=== PATIENT | female | born 1985 | race Caucasian/White ===

== ENCOUNTER 2024-12-20 11:41 | Outpatient (CLI) | payer OTHER, SELFPAY ==
--- OUTSIDE RECORDS SUMMARY | 2024-12-20 12:16 | XMS_ITS | Continuity of Care Document ---
Author Name [facility] Organization [facility] Care Team Providers Care Cloth Tester Quality Name Role Phone [facility] Unavailable Unavailable Problems Combined list of problems from Department of Defense and Veterans Affairs facilities. It does not include entries that were removed or entered in error. Problem Status Onset Date Problem Type Date of Resolution Comments Source Abnormal glucose complicating Active 7 Condition DoD visit for: exam Inactive Condition orthotricycl en with spotting/menses since starting. WIll continue with next cycle-f/u if menses continues DoD visit for: exam first Active Condition /pre-admitted [facility] NORMAL CHECKUP - THIRD TRIMESTER Active Condition [facility] COMPLICATIONS: ABNORMAL GLUCOSE TOLERANCE Active Condition Labor precautio ns given. DoD Active Condition kick count sptl precautionsbirth control and botlle feeding established [facility] Patient Education - Preparation For Childbirth Active Condition [facility] NORMAL CHECKUP - SECOND TRIMESTER Active Condition [facility] URINARY TRACT INFECTION Inactive Condition completed ABX w eeks ago, MONIKA today [facility] NORMAL CHECKUP - FIRST TRIMESTER Active Condition [facility] NORMAL CHECKUP (6 - 42 Wk) Active Condition I counseled pat ient on schedule and importance of future visits and testing, answered all questions [facility] Health Seminar on Care Inactive Condition [facility] Test Positive Active Condition DoD Allergies, Adverse Reactions, Alerts Combined list of allergies from Department of Defense and Veterans Affairs facilities. It does not include entries that were removed or entered in error. Substance Category Reaction Severity Reaction type Status Date Reported Comments Source NO OUTPUT FOR NCID [id number] Drug allergy (disorder) active 07/27/2005 [facility] Immunizations Combined list of available immunizations from the Department of Defense and Veterans Affairs facilities. Immunization Series Date Given Administered By Site Reaction Lot Number CVX Code Drug Unit Secretary Status Comments Source tetanus toxoid, reduced diphtheria toxoid, and acellular pertu is vaccine, adsorbed 1 2016 [id number] [facility] [employer] (SKB) complet ed tetanus toxoid, reduced diphtheri a toxoid, and acellular pertussis vaccine, adsorbed DoD Influenza, injectable, quadrivalent, preservative free 0 2016 [id number] [employer] (SKB) complet ed Influenza , injectabl e, quadrival ent, preservat stevenson free DoD Influenza, seasonal, injectable, preservative free 0 2015 [id number] Seqirus (SEQ) comple t ed Influenza , seasonal, injectabl e, preservat stevenson free DoD influenza, live, intranasal, quadrivalent 0 2014 [id number] 149 [employer] (MED) complet ed influenza , live, intranasa l, quadrival ent DoD influenza, live, intranasal, quadrivalent 0 2013 [id number] 149 [employer] (MED) complet ed influenza , live, intranasa l, quadrival ent DoD influenza nasal, unspecified formulation 0 2012 [id number] 151 [employer] (MED) complet ed influenza nasal, unspecifi ed formulati on DoD hepatitis A vaccine, adult dosage 2 2011 [id number] 52 Smithine (B) complet ed hepatitis A vaccine, adult dosage DoD influenza virus vaccine, live, attenuated, for intranasal use 0 2011 [id number] 111 [employer] (MED) complet ed influenza virus vaccine, live, attenuate d, for intranasa l use DoD human papilloma virus vaccine, quadrivalent 2 2011 [id number] 62 Merck (MSD) complet ed human papilloma virus vaccine, quadrival ent DoD measles and rubella virus vaccine 0 2011 04 () Not Given measles and rubella virus vaccine DoD hepatitis B vaccine, pediatric or pediatric/ado lescent dosage 0 2011 08 () Not Given hepatitis B vaccine, pediatric or pediatric /adolesce nt dosage DoD varicella virus vaccine 0 2011 21 () Not Given varicella virus vaccine DoD yellow fever vaccine 0 2011 [id number] 37 Sanofi Pasteur ([facility]) complet ed yellow fever vaccine DoD vaccinia (smallpox) vaccine 0 2011 [id number]-A 75 (MATTHEW) complet ed vaccinia (smallpox ) vaccine DoD hepatitis A vaccine, adult dosage 1 2011 [id number] [id number] 52 Smithine (B) complet ed hepatitis A vaccine, adult dosage DoD human papilloma virus vaccine, quadrivalent 1 2011 [id number] 62 Merck (MSD) complet ed human papilloma virus vaccine, quadrival ent DoD poliovirus vaccine, inactivated 0 2011 [id number] 10 Sanofi Pasteur ([facility]) complet ed polioviru s vaccine, inactivat ed DoD meningococcal polysaccharid e (groups A, C, Y and W-135) diphtheria toxoid conjugate vaccine (MCV4P) 0 2011 [id number] 114 Sanofi Pasteur ([facility]MC) complet ed meningoco ccal polysacch aride (groups A, C, Y and W-135) diphtheri a toxoid conjugate vaccine (MCV4P) DoD tetanus toxoid, reduced diphtheria toxoid, and acellular pertu is vaccine, adsorbed 0 2011 [id number] 115 Sanofi Pasteur ([facility]) complet ed tetanus toxoid, reduced diphtheri a toxoid, and acellular pertussis vaccine, adsorbed DoD Influenza, seasonal, injectable 0 2011 [id number] 141 Sanofi Pasteur ([facility]) complet ed Influenza , seasonal, injectabl e DoD Adenovirus, type 4 and type 7, live, oral 0 2011 [id number] 143 [employer]uddle (BRR) complet ed Adenoviru s, type 4 and type 7, live, oral DoD Encounters Combined list of: 1) Encounters from Department of Veterans Affairs facilities going backup to the last 18 months, not all VA inpatient encounters are included; 2) Encounters from the Department of Defense facilities going backup to 280 months. Location Location Details Encounter Type Encounter Number Reason For Visit Attending Provider ADM Date DC Date Status Disposition Source [facility](Gy necology Cln) TELE CONSULT [id number] lab results /appts SUDHEER DUMONT 10/07 [facility]( Gynecol ogy Cln) [facility](Gy necology Cln) OUTPATIENT [id number] u/s for dates lmp 08/26/04 edc 06/02/05 DENIZ MUÑIZ 10/22 Released w/o Limitations [facility]( Gynecol ogy Cln) [facility](Gy necology Cln) OUTPATIENT [id number] SUDHEER DUMONT 11/04 Released w/o Limitations [facility]( Gynecol ogy Cln) [facility](Gy necology Cln) OUTPATIENT [id number] DENIZ MUÑIZ 11/06 Released w/o Limitations [facility]( Gynecol ogy Cln) [facility](Gy necology Cln) OUTPATIENT [id number] ISABELLE SMALLWOOD 11/13 Released w/o Limitations [facility]( Gynecol ogy Cln) [facility](Gy necology Cln) OUTPATIENT [id number] DENIZ MUÑIZ 12/05 Released w/o Limitations [facility]( Gynecol ogy Cln) [facility](Gy necology Cln) OUTPATIENT [id number] TANO KAY 12/08 Released w/o Limitations [facility]( Gynecol ogy Cln) [facility](Gy necology Cln) OUTPATIENT [id number] CHASIDY EMERY 01/05 Released w/o Limitations [facility]( Gynecol ogy Cln) [facility](Gy necology Cln) OUTPATIENT [id number] ISABELLE SMALLWOOD 02/02 Released w/o Limitations [facility]( Gynecol ogy Cln) [facility](Gy necology Cln) OUTPATIENT [id number] DENIZ MUÑIZ 02/04 Released w/o Limitations [facility]( Gynecol ogy Cln) [facility](Gy necology Cln) OUTPATIENT [id number] BRITT STEPHENS 03/02 Released w/o Limitations [facility]( Gynecol ogy Cln) [facility](Gy necology Cln) OUTPATIENT [id number] ISABELLE SMALLWOOD 03/17 Released w/o Limitations [facility]( Gynecol ogy Cln) [facility](Gy necology Cln) TELE CONSULT [id number] 3hr GTT JOAO RICO A 03/17 [facility]( Gynecol ogy Cln) [facility](Gy necology Cln) OUTPATIENT [id number] CHASIDY EMERY 04/06 Released w/o Limitations [facility]( Gynecol ogy Cln) [facility](Gy necology Cln) OUTPATIENT [id number] SUDHEER DUMONT 04/18 Released w/o Limitations [facility]( Gynecol ogy Cln) [facility](Gy necology Cln) OUTPATIENT [id number] KATBRITT 04/20 Released w/o Limitations [facility]( Gynecol ogy Cln) [facility](Gy necology Cln) OUTPATIENT [id number] EDDIE ALSTON 05/04 Released w/o Limitations [facility]( Gynecol ogy Cln) [facility](Gy necology Cln) OUTPATIENT [id number] HERRONEVGENY 05/19 Released w/o Limitations [facility]( Gynecol ogy Cln) [facility](Gy necology Cln) OUTPATIENT [id number] EVGENY HERRON 05/28 Released w/o Limitations [facility]( Gynecol ogy Cln) [facility](Gy necology Cln) OUTPATIENT [id number] HERRONEVGENY 06/03 Released w/o Limitations [facility]( Gynecol ogy Cln) [facility](Gy necology Cln) OUTPATIENT [id number] CHASIDY EMERY 06/10 Released w/o Limitations [facility]( Gynecol ogy Cln) [facility] DIRECT TO [facility] FROM OTHER THAN ER OR [facility] [id number] 06/13 DISCHARGED HOME [facility](Gy necology Cln) OUTPATIENT [id number] postpar mario CHASIDY EMERY NIKI 07/27 Released w/o Limitations [facility]( Gynecol ogy Cln) [facility] h(Optomet ry [place]) OUTPATIENT [id number] EYE EXAM MARIAM LESTER 03/29 Released w/o Limitations [facility] [place] [place] [facility] [place] OUTPATIENT [id number] routine eye exam MARIAM LESTER 09/08 Released w/o Limitations [facility] [place]) [facility] [place] [facility] [place]) OUTPATIENT [id number] PREOP PRK MARIAM LESTER 10/21 Released w/o Limitations [facility] [place]) [facility] h(Ophthal mology [place]) OUTPATIENT [id number] INFORME D CONSENT ELAINE CHEN 10/28 Released w/o Limitations [facility] [place] thal[place]gy [place]) [facility] [place]) OUTPATIENT [id number] Notes Entered by: TODD ESTRADA 04 Nov 2015 1151 ------- ------- ------- ------- -- lab order PAULY ESTRADA 11/03 [facility] [place]) [facility] h(Ophthal mology [place]) OUTPATIENT [id number] PRK ELAINE MARTIN 11/05 Released w/o Limitations [facility] [place] [facility](Oph thalmol ogy [place]) [facility] h(Ophthal mology [place]) OUTPATIENT [id number] 1 DAY POP ELAINE CHEN 11/06 [facility]ased w/o Limitations [facility](Oph thalmol ogy [place]) [facility](Ophthal mology [place]) OUTPATIENT [id number] 5 DAY POP PRK ELAINE LOVELACE 11/11 Released w/o Limitations [facility](Oph thalmol ogy [place]) [facility](Ophthal mology [place]) OUTPATIENT [id number] 1 MO POP PRK ELAINE LOVELACE 12/18 Released w/o Limitations [facility](Oph thalmol ogy [place]) [facility]([employer]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 LIZZETH WILKINSON 02/24 Released w/o Limitations [facility]([employer] [place]) [facility](Ophthal mology [place]) OUTPATIENT [id number] POP PRK 3MO++ ELAINE LOVELACE 04/15 Released w/o Limitations [facility](Oph thalmol ogy [place]) [facility]([employer] [facility]) OUTPATIENT [id number] pregnan MARGARET Gutierrez 12/24 Released w/o Limitations [facility]([employer] [facility]) [facility]([employer] ) OUTPATIENT [id number] dhirajata l nutriti on SANIA MOORE 12/28 Released w/o Limitations [facility]([employer]) [facility] [facility]) OUTPATIENT [id number] 13+0 LISBETH FLOOD 01/01 Released w/o Limitations [facility]([employer] [facility]) [facility]([employer] [facility]) OUTPATIENT [id number] 16.3 wks JOAO Hernandez E 01/25 Released w/o Limitations [facility]([employer] [facility]) [facility]([employer] [facility]) OUTPATIENT [id number] 22.3 wks LAZARA VERMA 03/08 Released w/o Limitations [facility]([employer] [facility]) [facility]([employer] [facility]) OUTPATIENT [id number] 27.1wks LISBETH Crowe 04/13 Released w/o Limitations [facility]) [facility]([employer] [facility]) TELE CONSULT [id number] Notes Entered by: JAY SANCHEZ OD 07 May 2017 1247 ------- ------- ------- ------- -- 28wk lab work results LAZARA VALDEZ 05/07 [facility]) [facility]([employer] [facility]) OUTPATIENT [id number] 32 wks suzan per JOAO Antonio 05/14 Released w/o Limitations [facility]) [facility] [facility]) TELE CONSULT [id number] Notes Entered by: Pavithra WATSON 01 Jun 2017 1347 ------- ------- ------- ------- -- 34wks suzan calling for glucose test results DELIA MEDINA 06/01 Referred for Appointment [facility]) [facility]) OUTPATIENT [id number] Elevate d 3 hr gtt per TARIQ Bo 06/03 Released w/o Limitations [facility]) [facility]) OUTPATIENT [id number] 36wk suzan wants to tlk about early deliver y per TARIQ Noguera 06/11 Released w/o Limitations [facility]) [facility]) TELE CONSULT [id number] Notes Entered by: RADHA JOHNSON 14 Jun 2017 2148 ------- ------- ------- ------- -- Lost mucus plug, back pain and abdomin al crampin g MARGARET IRENE 06/15 [facility]) [facility] DIRECT TO [facility] FROM OTHER THAN ER OR [facility] [id number] MARK LY Skye 06/23 RETURNED TO DUTY [facility]) OUTPATIENT [id number] Notes Entered by: ESTEFANY JEFFERSON 23 Jun 2017 1925 ------- ------- ------- ------- -- L&D triage 40.0wk SROM rule out LYMEHDISheri Cheung 06/24 Admitted [facility]) [facility]) TELE CONSULT [id number] Notes Entered by: STEFANIA CALDERA 28 Jul 2017 0953 ------- ------- ------- ------- -- 6wks PP r/s STEFANIA CALDERA 07/28 Referred for Appointment [facility]) [facility]) OUTPATIENT [id number] 6wks PP LENI SLATER 08/06 Released w/o Limitations [facility]) Procedures Combined list of: 1) Procedures from Department of Veterans Affairs facilities going back up to thelast 18 months, not all VA non-surgical procedures are included; 2) All procedures from the Department of Defense facilities. Procedure Procedure Type Code Date Perfomer Comments [facility] Obstetrical Services Care Visit Obstetrical Services Care Visit [id number] 08/07/19 18 LENI SLATER DoD OB Services Antepartum Care Only Subsequent Single Visit OB Services Antepartum Care Only Subsequent Single Visit 0502F 06/27/19 18 TARIQ ORLANDO [facility] Non-Physician Phone Call To Patient/Provider Brief (5-10min) Non-Physician Phone Call To Patient/Provider Brief (5-10min) [id number] 06/02/19 18 DELIA MEDINA Patient Counseling Medical Management Individual Patient Patient Counseling Medical Management Individual Patient [id number] 05/14/20 17 JOAO CANDELARIA OB Services Antepartum Care Only Subsequent Single Visit OB Services Antepartum Care Only Subsequent Single Visit 0502F 05/14/20 17 JOAO CANDELARIA Patient Counseling Medical Management Individual Patient Patient Counseling Medical Management Individual Patient [id number] 04/13/20 17 LISBETH PANDYA OB Services Antepartum Care Only Subsequent Single Visit OB Services Antepartum Care Only Subsequent Single Visit 0502F 04/13/20 17 LISBETH PANDYA Patient Counseling Medical Management Individual Patient Patient Counseling Medical Management Individual Patient [id number] 03/13/20 17 LAZARA VALDEZ OB Services Antepartum Care Only Subsequent Single Visit OB Services Antepartum Care Only Subsequent Single Visit 0502F 03/13/20 17 LAZARA VALDEZ Ultrasound Obstetric Limited Evaluation Ultrasound Obstetric Limited Evaluation [id number] 01/02/20 17 LISBETH PANDYA OB Services Antepartum Care Only 1st Visit, With Flowsheet OB Services Antepartum Care Only 1st Visit, With Flowsheet 0501F 01/02/20 17 LISBETH PANDYA [facility] Therapy Group (2 or More Individual(s)) Medical Nutrition Therapy Group (2 or More Individual(s)) 02136 01/01/20 17 SANIA MOORE Ophthalmological Prior Patient Start Comprehensive Care Ophthalmological Prior Patient Start Comprehensive Care 60282 04/15/20 16 ELAINE LOVELACE Screening papanicolaou smear; obtaining, preparing and conveyance of cervical or vaginal smear to laboratory 02/26/20 16 LIZZETH WILKINSON Postoperative Visit, Without Charge Postoperative Visit, Without Charge 30061 12/19/19 16 ELAINE LOVELACE Postoperative Visit, Without Charge Postoperative Visit, Without Charge 25585 11/12/19 16 ELAINE LOVELACE Postoperative Visit, Without Charge Postoperative Visit, Without Charge 23112 11/07/19 16 ELAINE LOVELACE Photorefractive keratectomy (PRK) 11/07/19 16 LOVELACE, ELAINE T DoD Dr. Services Special Review / Reporting Of Patient Status Services Special Review / Reporting Of Patient Status 49601 11/04/19 16 PAULY ESTRADA Ophthalmological New Patient Start Intermediate Level Care Ophthalmological New Patient Start Intermediate Level Care 89227 10/29/19 16 ELAINE LOVELACE Determination Of Refractive State Determination Of Refractive State 12449 10/24/19 16 MARIAM LESTER manifest and cyclo DoD Computerized Corneal Topography Computerized Corneal Topography 74500 10/24/19 16 MARIAM LESTER Ophthalmological Prior Patient Start Comprehensive Care Ophthalmological Prior Patient Start Comprehensive Care 49280 10/24/19 16 MARIAM LESTER Prescription & Fitting Bilateral Corneal Lenses (Not Aphakia Prescription & Fitting Bilateral Corneal Lenses (Not Aphakia 46523 09/09/19 16 MARIAM LESTER [employer] [facility] Fitting Monofocals (Not For Aphakia) [facility] Fitting Monofocals (Not For Aphakia) 09431 09/09/19 16 MARIAM LESTER Order FOC and S9 DoD Determination Of Refractive State Determination Of Refractive State 98178 09/09/19 16 MARIAM LESTER Ophthalmological Prior Patient Start Comprehensive Care Ophthalmological Prior Patient Start Comprehensive Care 55832 09/09/19 16 MARIAM LESTER Prescription & Fitting Bilateral Corneal Lenses (Not Aphakia Prescription & Fitting Bilateral Corneal Lenses (Not Aphakia 09333 03/29/20 14 MARIAM LESTER [employer] [facility] Fitting Monofocals (Not For Aphakia) [facility] [facility] Fitting Monofocals (Not For Aphakia) 21978 03/29/20 14 MARIAM LESTER Order FOC and S9 DoD Determination Of Refractive State Determination Of Refractive State 45771 03/29/20 14 MARIAM LESTER Ophthalmological New Patient Start Comprehensive Care Ophthalmological New Patient Start Comprehensive Care 86838 03/29/20 14 MARIAM LESTER Obstetrical Services Antepartum Care Only 7 Or More Visits Obstetrical Services Antepartum Care Only 7 Or More Visits 47467 06/03/19 06 EVGENY HERRON Obstetrical Services Antepartum Care Only 7 Or More Visits Obstetrical Services Antepartum Care Only 7 Or More Visits 80550 05/28/19 06 EVGENY HERRON Ultrasound Obstetric Limited Evaluation Ultrasound Obstetric Limited Evaluation 26501 05/19/19 06 HERRONEVGENY [facility] Obstetrical Services Antepartum Care Only 7 Or More Visits Obstetrical Services Antepartum Care Only 7 Or More Visits 66582 05/19/19 06 RADHA HERRONIC Sheri [facility] Childbirth preparation/Lamaze cla es, non-physician provider, per se ion 04/18/20 05 SUDHEER DUMONT [facility] Ultrasound Obstetric Complete Evaluation Ultrasound Obstetric Complete Evaluation 67792 02/05/20 05 DENIZ MUÑIZ [facility] Transabdominal Ultrasound Single Or First Gestation Transabdominal Ultrasound Single Or First Gestation 53325 12/06/19 05 DENIZ MUÑIZ [facility] Transabdominal Ultrasound Single Or First Gestation Transabdominal Ultrasound Single Or First Gestation 51081 11/07/19 05 DENIZ MUÑIZ Transabdominal Ultrasound Single Or First Gestation Transabdominal Ultrasound Single Or First Gestation 89026 10/23/19 05 DENIZ MUÑIZ [facility] OTHER ARTIFICIAL RUPTURE OF MEMBRANES 06/16/19 06 [facility] EKG (SCALP) 06/16/19 06 [facility] OTHER MONITORING 06/16/19 06 [facility] REPAIR OF OTHER CURRENT OBSTETRIC LACERATION 06/16/19 06 [facility] VAGINAL DELIVERY ONLY (WITH OR WITHOUT EPISIOTOMY AND/OR FORCEPS); 06/14/19 06 [facility] ANTEPARTUM CARE ONLY; 7 OR MORE VISITS 06/03/19 06 [facility] ANTEPARTUM CARE ONLY; 7 OR MORE VISITS 05/28/19 06 [facility] ANTEPARTUM CARE ONLY; 7 OR MORE VISITS 05/19/19 06 [facility] CHILDBIRTH PREPARATION/LAMAZE CLASSES, NON-PHYSICIAN PROVIDER, PER SESSION 04/18/20 05 [facility] ULTRASOUND, UTERUS, REAL TIME WITH IMAGE DOCUMENTATION, AND MATERNAL EVALUATION, AFTER FIRST TRIMESTER (> OR = 14 WEEKS 0 DAYS), TRANSABDOMINAL APPROACH; SINGLE OR FIRST GESTATION 02/05/20 05 [facility] ULTRASOUND, UTERUS, REAL TIME WITH IMAGE DOCUMENTATION, AND MATERNAL EVALUATION, FIRST TRIMESTER (< 14 WEEKS 0 DAYS), TRANSABDOMINAL APPROACH; SINGLE OR FIRST GESTATION 12/06/19 05 [facility] ULTRASOUND, UTERUS, REAL TIME WITH IMAGE DOCUMENTATION, AND MATERNAL EVALUATION, FIRST TRIMESTER (< 14 WEEKS 0 DAYS), TRANSABDOMINAL APPROACH; SINGLE OR FIRST GESTATION 11/07/19 05 [facility] ULTRASOUND, UTERUS, REAL TIME WITH IMAGE DOCUMENTATION, AND MATERNAL EVALUATION, FIRST TRIMESTER (< 14 WEEKS 0 DAYS), TRANSABDOMINAL APPROACH; SINGLE OR FIRST GESTATION 10/23/19 05 [facility] CARE VISIT () 08/07/19 18 [facility] INSERTION OF INFUSION DEVICE INTO SPINAL CANAL, PERCUTANEOUS APPROACH 06/25/19 [facility] REPAIR VULVA, EXTERNAL APPROACH 06/25/19 [facility] DELIVERY OF PRODUCTS OF CONCEPTION, EXTERNAL APPROACH 06/25/19 [facility] INTRODUCTION OF ANESTHETIC AGENT INTO SPINAL CANAL, PERCUTANEOUS APPROACH 06/25/19 [facility] MONITORING OF PRODUCTS OF CONCEPTION, CARDIAC ELECTRICAL ACTIVITY, EXTERNAL APPROACH 06/25/19 [facility] VAGINAL DELIVERY ONLY (WITH OR WITHOUT EPISIOTOMY AND/OR FORCEPS); 06/24/19 [facility] NEURAXIAL LABOR ANALGESIA/ANESTHESIA FOR PLANNED VAGINAL DELIVERY (THIS INCLUDES ANY REPEAT SUBARACHNOID NEEDLE PLACEMENT&DRUG INJECTION &/ ANY NECESSARY REPLACEMENT, AN EPIDURAL CATHETER DUR LABOR) 06/23/19 [facility] SUBSEQ CARE VISIT () [EXCLS:PATIENTS WHO ARE SEEN FOR A CONDITION UNREL TO / CARE (EG,AN UP RESPIR INFECT;PATIENTS SEEN FOR CONSULTATION ONLY,NOT FOR CONT CARE)] 06/11/19 18 [facility] SUBSEQ CARE VISIT () [EXCLS:PATIENTS WHO ARE SEEN FOR A CONDITION UNREL TO / CARE (EG,AN UP RESPIR INFECT;PATIENTS SEEN FOR CONSULTATION ONLY,NOT FOR CONT CARE)] 06/03/19 [facility] TELE ASSESS & MGT SRV PROV QUAL NONPHYS HLTH CARE PRO TO EST PAT,PARENT,GUARD NOT ORIG REL ASSESS & MGT SRV PROV W/IN PREV 7 DAYS NOR LEAD ASSESS & MGT SRV/PX W/IN NXT 24 HR/SOON APT;5-10 MIN MED DIS 06/01/19 18 [facility] SUBSEQ CARE VISIT () [EXCLS:PATIENTS WHO ARE SEEN FOR A CONDITION UNREL TO / CARE (EG,AN UP RESPIR INFECT;PATIENTS SEEN FOR CONSULTATION ONLY,NOT FOR CONT CARE)] 05/14/20 17 [facility] SUBSEQ CARE VISIT () [EXCLS:PATIENTS WHO ARE SEEN FOR A CONDITION UNREL TO / CARE (EG,AN UP RESPIR INFECT;PATIENTS SEEN FOR CONSULTATION ONLY,NOT FOR CONT CARE)] 04/13/20 17 [facility] SUBSEQ CARE VISIT () [EXCLS:PATIENTS WHO ARE SEEN FOR A CONDITION UNREL TO / CARE (EG,AN UP RESPIR INFECT;PATIENTS SEEN FOR CONSULTATION ONLY,NOT FOR CONT CARE)] 03/08/20 17 [facility] SUBSEQ CARE VISIT () [EXCLS:PATIENTS WHO ARE SEEN FOR A CONDITION UNREL TO / CARE (EG,AN UP RESPIR INFECT;PATIENTS SEEN FOR CONSULTATION ONLY,NOT FOR CONT CARE)] 01/26/20 17 [facility] INITIAL CARE VISIT (REPORT AT 1ST ENCOUN W HEALTH INFLATED BALL MOLDER PROVIDING OBSTETRIC CARE. REPORT ALSO DATE OF VISIT &,IN A SEPARATE FIELD,THE DATE OF THE LAST MENSTRUAL PERIOD) 01/02/20 17 [facility] MEDICAL NUTRITION THERAPY; GROUP (2 OR MORE INDIVIDUAL(S)), EACH 30 MINUTES 12/29/19 17 [facility] PHYS/OTH QUALIFIED HEALTH INFLATED [employer] QUALIFIED,EDUCATION, TRAIN,LICENSURE/REGU LATION (WHEN APPLICABLE) EDUC SER RENDERED TO PATS IN A GRP SETTING (EG,,OBESITY ,OR DIABETIC INSTRUCT) 12/26/19 17 [facility] OPHTHALMOLOGICAL SERVICES: MEDICAL EXAMINATION AND EVALUATION, WITH INITIATION OR CONTINUATION OF DIAGNOSTIC AND TREATMENT PROGRAM; COMPREHENSIVE, ESTABLISHED PATIENT, 1 OR MORE VISITS 04/15/20 16 [facility] SCREENING P[place]ICOLAOU SMEAR; OBTAINING, PREPARING AND CONVEYANCE OF CERVICAL OR VAGINAL SMEAR TO LABORATORY 02/26/20 16 [facility] POSTOPERATIVE FOLLOW-UP VISIT, NORMALLY INCLUDED IN THE SURGICAL PACKAGE, INDICATE THAT EVALUATION & MANAGEMENT SERVICE WAS PERFORMED DURING A POSTOPERATIVE PERIOD REASON RELATED ORIGINAL PROCEDURE 12/19/19 16 [facility] POSTOPERATIVE FOLLOW-UP VISIT, NORMALLY INCLUDED IN THE SURGICAL PACKAGE, INDICATE THAT EVALUATION & MANAGEMENT SERVICE WAS PERFORMED DURING A POSTOPERATIVE PERIOD REASON RELATED ORIGINAL PROCEDURE 11/12/19 16 [facility] POSTOPERATIVE FOLLOW-UP VISIT, NORMALLY INCLUDED IN THE SURGICAL PACKAGE, INDICATE THAT EVALUATION & MANAGEMENT SERVICE WAS PERFORMED DURING A POSTOPERATIVE PERIOD REASON RELATED ORIGINAL PROCEDURE 11/07/19 16 [facility] PHOTOREFRACTIVE KERATECTOMY (PRK) 11/06/19 16 [facility] OPHTHALMOLOGICAL SERVICES: MEDICAL EXAMINATION AND EVALUATION WITH INITIATION OF DIAGNOSTIC AND TREATMENT PROGRAM; INTERMEDIATE, NEW PATIENT 10/29/19 16 [facility] COMPUTERIZED CORNEAL TOPOGRAPHY, UNILATERAL OR BILATERAL, WITH INTERPRETATION AND REPORT 10/22/19 16 [facility] FITTING OF SPECTACLES, EXCEPT FOR APHAKIA; MONOFOCAL 09/09/19 16 [facility] FITTING OF SPECTACLES, EXCEPT FOR APHAKIA; MONOFOCAL 03/29/20 14 [facility] Social History Combined list of available smoking, tobacco, and other social history from [facility] [employer] and [facility] facilities. Social History Type Response Date Comment Sourc e This section is an empty social history section. [employer]
[2024-12-20 18:06] LABS: Hematocrit 47.0 % (37.0-47.0); Hemoglobin 15.1 g/dL (12.0-15.0); Immature Granulocyte Percent A 0.2 % (0-0.5); Lymphocytes Absolute Auto 2.01 K/mm3 (0.9-3.2); Mean Corpuscular HGB Conc 32.1 g/dl (32-36); Mean Corpuscular Hemoglobin 31.2 pg (26-34); Mean Corpuscular Volume 97.1 fl (80-100); Nucleated Red Blood Cells Absolute Auto 0.000 K/mm3 (0.0-0.012); Nucleated Red Blood Cells Perc 0.0 % (0.0-0.2); Platelet Count Result 345 k/mm3 (150-375); Red Blood Count 4.84 M/mm3 (4.2-5.4); White Blood Count 5.8 K/mm3 (4.5-10.0)
[2024-12-20 18:19] LABS: Alanine Aminotransferase 14 U/L (6-35); Albumin Level 4.3 g/dL (3.5-5.1); Alkaline Phosphatase 63 U/L (38-126); Anion Gap 8 mmol/L (4-12); Aspartate Amino Transferase 39 U/L (14-36); Bilirubin,Total 0.7 mg/dL (0.2-1.3); Blood Urea Nitrogen 8 mg/dL (7-17); Calcium 9.3 mg/dL (8.4-10.2); Carbon Dioxide 23 mmol/L (22-30); Chloride 107 mmol/L (98-107); Cholesterol 197 mg/dL (0-200); Estimated Glomerular Filt Rate > 60; Glucose 91 mg/dL (65-110); HDL Direct 42 mg/dL; Potassium 4.4 mmol/L (3.4-5.0); Sodium 138 mmol/L (137-145); Total Protein 7.4 g/dL (6.3-8.2); Triglycerides 81 mg/dL (<150)
[2024-12-20 18:54] LABS: Thyroid Stimulating Hormone 1.230 uIU/mL (0.465-4.680)
== END 2024-12-20 11:42 | disposition home or self-care (01) ==
PROVIDERS: PCP Family Medicine; Visit Provider Family Medicine
DX: Z00.00 Encounter for general adult medical examination without abnormal findings (principal); Z11.59 Encounter for screening for other viral diseases; E11.59 Type 2 diabetes mellitus with other circulatory complications; R30.0 Dysuria
CPT/HCPCS: 36415; 80053; 80061; 84443; 85025; 86803; 87086

== ENCOUNTER 2025-01-08 13:01 | Outpatient (CLI) | payer OTHER, SELFPAY ==
--- NOTE | ~2025-01-08 | MM_ITS ---
EXAMINATION: screening [facility] BI w bambi INDICATION: Asymptomatic, referred for screening mammogram COMPARISON: Baseline TECHNIQUE: Digital Breast Tomosynthesis CC, MLO views of Both breasts were obtained with computer-aided detection to assist in interpretation of the study. FINDINGS: The breasts are heterogeneously dense, which may obscure small masses. There is a mass with partially obscured margins in the inferior central 6:00 right breast at anterior third. Elsewhere, there are no mammographic features of malignancy. IMPRESSION: 1. Right breast Mass. 2. No evidence of malignancy in the Left breast. RECOMMENDATION: Right breast Diagnostic mammogram with true lateral, appropriate spot compression views and an ultrasound. BI-RADS Category 0: Incomplete: Needs additional imaging evaluation. Reviewed, dictated and finalized at location B. IMPRESSION: 1. Right breast Mass. 2. No evidence of malignancy in the Left breast. RECOMMENDATION: Right breast Diagnostic mammogram with true lateral, appropriate spot compressi on views and an ultrasound. BI-RADS Category 0: Incomplete: Needs additional imaging evaluation.
--- OUTSIDE RECORDS SUMMARY | 2025-01-08 13:09 | XMS_ITS | Continuity of Care Document ---
Author Name [facility] Organization [facility] Care Team Providers Care Chairman Emeritus Name Role Phone [facility] Unavailable Unavailable Problems Combined list of problems [...] visit for: exam first Active Condition /pre-admitted [facility] NORMAL CHECKUP - THIRD TRIMESTER Active Condition [facility] COMPLICATIONS: ABNORMAL GLUCOSE TOLERANCE Active Condition Labor precautio ns given. DoD Active Condition kick count sptl precautionsbirth control and botlle feeding established [facility] Patient Education - Preparation For Childbirth Active Condition [facility] NORMAL CHECKUP - SECOND TRIMESTER Active Condition [facility] URINARY TRACT INFECTION Inactive Condition completed ABX w eeks ago, MONIKA today [facility] NORMAL CHECKUP - FIRST TRIMESTER Active Condition [facility] NORMAL CHECKUP (6 - 42 Wk) Active Condition I counseled pat ient on schedule and importance of future visits and testing, answered all questions [facility] Health Seminar on Care Inactive Condition [facility] Test Positive Active Condition DoD Allergies, Adverse Reactions, Alerts Combined list of allergies from Department of Defense and Veterans Affairs facilities. It does not include entries that were removed or entered in error. Substance Category Reaction Severity Reaction type Status Date Reported Comments Source NO OUTPUT FOR NCID 577472 Drug allergy (disorder) active 07/27/2005 [facility] Immunizations Combined list of available immunizations from the Department of Defense and Veterans Affairs facilities. Immunization Series Date Given Administered By Site Reaction Lot Number CVX Code Drug Cotton Dispatcher Status Comments Source tetanus toxoid, reduced diphtheria toxoid, and acellular pertu is vaccine, adsorbed 1 2016 [id number] [facility] [employer] (SKB) complet ed tetanus toxoid, reduced diphtheri a toxoid, and acellular pertussis vaccine, adsorbed DoD Influenza, injectable, quadrivalent, preservative free 0 2016 [id number] Liquid Computingine (SKB) complet ed Influenza , injectabl e, quadrival ent, preservat stevenson free DoD Influenza, seasonal, injectable, preservative free 0 2015 [id number] 140 Seqirus (SEQ) comple t ed Influenza , seasonal, injectabl e, preservat stevenson free DoD influenza, live, intranasal, quadrivalent 0 2014 [id number] 149 [employer] (MED) complet ed influenza , live, intranasa l, quadrival ent DoD influenza, live, intranasal, quadrivalent 0 2013 [id number] 149 Rachel Joyce [employer] (MED) complet ed influenza , live, intranasa l, quadrival ent DoD influenza nasal, unspecified formulation 0 2012 [id number] 151 Rachel Joyce [employer] (MED) complet ed influenza nasal, unspecifi ed formulati on DoD hepatitis A vaccine, adult dosage 2 2011 [id number] 52 Smithine (B) complet ed hepatitis A vaccine, adult dosage DoD influenza virus vaccine, live, attenuated, for intranasal use 0 2011 [id number] 111 Rachel Joyce [employer] (MED) complet ed influenza virus vaccine, [...] vaccine DoD yellow fever vaccine 0 2011 [id number] 37 Sanofi Pasteur ([facility]) complet ed yellow fever vaccine DoD vaccinia [...] diphtheria toxoid conjugate vaccine (MCV4P) 0 2011 [id number] 114 Sanofi Pasteur ([facility]) complet ed meningoco ccal polysacch aride (groups A, C, Y and W-135) diphtheri a toxoid conjugate vaccine (MCV4P) DoD tetanus toxoid, reduced diphtheria toxoid, and acellular pertu is vaccine, adsorbed 0 2011 [id number] 115 Sanofi Pasteur ([facility]) complet ed tetanus toxoid, reduced diphtheri a toxoid, and acellular pertussis vaccine, adsorbed DoD Influenza, seasonal, injectable 0 2011 [id number] 141 Sanofi Pasteur ([facility]) complet ed Influenza , seasonal, injectabl e DoD Adenovirus, type 4 and type 7, live, oral 0 2011 [id number] 143 [employer] (BRR) complet ed Adenoviru s, type 4 [...] ADM Date DC Date Status Disposition Source [facility](Gy necology Cln) TELE CONSULT [id number] lab results /appts SUDHEER DUMONT 10/07 [facility]( Gynecol ogy Cln) [facility](Gy necology Cln) OUTPATIENT [id number] u/s for dates lmp 08/26/04 edc 06/02/05 DENIZ MUÑIZ 10/22 Released w/o Limitations [facility]( Gynecol ogy Cln) [facility](Gy necology Cln) OUTPATIENT [id number] SUDHEER DUMONT 11/04 Released w/o Limitations [facility]( Gynecol ogy Cln) [facility](Gy necology Cln) OUTPATIENT [id number] DENIZ MUÑIZ 11/06 Released w/o Limitations [facility]( Gynecol ogy Cln) [facility](Gy necology Cln) OUTPATIENT [id number] ISABELLE SMALLWOOD 11/13 Released w/o Limitations [facility]( Gynecol ogy Cln) [facility](Gy necology Cln) OUTPATIENT [id number] DENIZ MUÑIZ 12/05 Released w/o Limitations [facility]( Gynecol ogy Cln) [facility](Gy necology Cln) OUTPATIENT [id number] TANO KAY 12/08 Released w/o Limitations [facility]( Gynecol ogy Cln) [facility](Gy necology Cln) OUTPATIENT [id number] CHASIDY EMERY 01/05 Released w/o Limitations [facility]( Gynecol ogy Cln) [facility](Gy necology Cln) OUTPATIENT [id number] ISABELLE SMALLWOOD 02/02 Released w/o Limitations [facility]( Gynecol ogy Cln) [facility](Gy necology Cln) OUTPATIENT [id number] DENIZ MUÑIZ 02/04 Released w/o Limitations [facility]( Gynecol ogy Cln) [facility](Gy necology Cln) OUTPATIENT [id number] BRITT STEPHENS 03/02 Released w/o Limitations [facility]( Gynecol ogy Cln) [facility](Gy necology Cln) OUTPATIENT [id number] ISABELLE SMALLWOOD 03/17 Released w/o Limitations [facility]( Gynecol ogy Cln) [facility](Gy necology Cln) TELE CONSULT [id number] 3hr GTT JOAO RICO A 03/17 [facility]( Gynecol ogy Cln) [facility](Gy necology Cln) OUTPATIENT [id number] CHASIDY EMERY 04/06 Released w/o Limitations [facility]( Gynecol ogy Cln) [facility](Gy necology Cln) OUTPATIENT [id number] SUDHEER DUMONT 04/18 Released w/o Limitations [facility]( Gynecol ogy Cln) [facility](Gy necology Cln) OUTPATIENT [id number] KATBRITT 04/20 Released w/o Limitations [facility]( Gynecol ogy Cln) [facility](Gy necology Cln) OUTPATIENT [id number] EDDIE ALSTON 05/04 Released w/o Limitations [facility]( Gynecol ogy Cln) [facility](Gy necology Cln) OUTPATIENT [id number] HERRONEVGENY 05/19 Released w/o Limitations [facility]( Gynecol ogy Cln) [facility](Gy necology Cln) OUTPATIENT [id number] EVGENY HERRON 05/28 Released w/o Limitations [facility]( Gynecol ogy Cln) [facility](Gy necology Cln) OUTPATIENT [id number] HERRONEVGENY 06/03 Released w/o Limitations [facility]( Gynecol ogy Cln) [facility](Gy necology Cln) OUTPATIENT [id number] CHASIDY EMERY 06/10 Released w/o Limitations [facility]( Gynecol ogy Cln) [facility] FROM OTHER THAN ER OR [facility] [id number] 06/13 DISCHARGED HOME [facility](Gy necology Cln) OUTPATIENT [id number] postpar mario CHASIDY EMERY NIKI 07/27 Released w/o Limitations [facility]( Gynecol ogy Cln) [facility] h([facility]omet ry [place]) OUTPATIENT [id number] EYE EXAM MARIAM LESTER 03/29 Released w/o Limitations [facility] [place]) [facility]omet [facility] [place]) OUTPATIENT [id number] routine eye exam MARIAM LESTER 09/08 Released w/o Limitations [facility] [place] [place]) [facility] [place]([facility] [facility] [place]) OUTPATIENT [id number] PREOP PRK MARIAM LESTER 10/21 Released w/o Limitations [facility] [place]([facility] [place]) [facility] h(Ophthal mology [place]) OUTPATIENT [id number] INFORME D CONSENT ELAINE CHEN 10/28 Released w/o Limitations [facility] [place]ph thalmol [place]gy [place]) [facility]omet [facility] [place]) OUTPATIENT [id number] Notes Entered by: TODD ESTRADA 04 Nov 2015 1151 ------- ------- ------- ------- -- lab order PAULY ESTRADA 11/03 [facility] Limitations [facility] [place]) [facility] h(Ophthal mology [place]) OUTPATIENT [id number] PRK ELAINE MARTIN 11/05 Released w/o Limitations [facility] [place] [facility](Oph thalmol ogy [place]) [facility] h(Ophthal mology [place]) OUTPATIENT [id number] 1 DAY POP ELAINE CHEN 11/06 [facility] w/o Limitations [facility](Oph thalmol ogy [place]) [facility](Ophthal mology [place]) OUTPATIENT [id number] 5 DAY POP PRK ELAINE LOVELACE 11/11 Released w/o Limitations [facility](Oph thalmol ogy [place]) [facility](Ophthal mology [place]) OUTPATIENT [id number] 1 MO POP PRK ELAINE LOVELACE 12/18 Released w/o Limitations [facility](Oph thalmol ogy [place]) [facility](Birth Certificate Clerk [employer] [place]) OUTPATIENT [id number] PAP SMEAR. LIZZETH WILKINSON 02/24 Released w/o Limitations [facility](Birth Certificate [employer] [place]) [facility](Ophthal mology [place]) OUTPATIENT [id number] POP PRK 3MO++ ELAINE LOVELACE 04/15 Released w/o Limitations [facility](Oph thalmol ogy [place]) [facility]) OUTPATIENT [id number] pregnan MARGARET Gutierrez 12/24 Released w/o Limitations [facility]([place] [facility]) [facility]([place] [facility] ) OUTPATIENT [id number] dhirajata l nutriti on SANIA MOORE 12/28 Released w/o Limitations [facility]([place] [employer]) [facility]) OUTPATIENT [id number] 13+0 LISBETH FLOOD 01/01 Released w/o Limitations [facility]) [facility]) OUTPATIENT [id number] 16.3 wks JOAO Hernandez E 01/25 Released w/o Limitations [facility]) [facility]) OUTPATIENT [id number] 22.3 wks LAZARA VERMA 03/08 Released w/o Limitations [facility]) [facility]) OUTPATIENT [id number] 27.1wks LISBETH Crowe 04/13 Released w/o Limitations [facility]) [facility]) TELE CONSULT [id number] Notes Entered by: JAY SANCHEZ OD 07 May 2017 1247 ------- ------- ------- ------- -- 28wk lab work results LAZARA VALDEZ 05/07 [facility]) [facility]) OUTPATIENT [id number] 32 wks suzan per JOAO Antonio 05/14 Released w/o Limitations [facility]) [facility]) TELE CONSULT [id number] Notes Entered by: Pavithra WATSON 01 Jun 2017 1347 ------- ------- ------- ------- -- 34wks suzan calling for glucose test results DELIA MEDINA 06/01 Referred for Appointment [facility]) [facility]) OUTPATIENT [id number] Elevate d 3 hr gtt per TARIQ Bo 06/03 Released w/o Limitations [facility]) [facility]) OUTPATIENT [id number] 36wk suzan wants to tlk about early deliver y per TARIQ Noguera 06/11 Released w/o Limitations [facility]) [facility]) TELE CONSULT [id number] Notes Entered by: RADHA JOHNSON 14 Jun 2017 2148 ------- ------- ------- ------- -- Lost mucus plug, back pain and abdomin al crampin g MARGARET IRENE 06/15 [facility]) [facility] FROM OTHER THAN ER OR [facility] [id number] MARK LY Skye 06/23 RETURNED TO D[facility]) OUTPATIENT [id number] Notes Entered by: ESTEFANY JEFFERSON 23 Jun 2017 1925 ------- ------- ------- ------- -- L&D triage 40.0wk SROM rule out ALIYAHJAMESMARK A 06/24 Admitted [facility]) [facility]) TELE CONSULT [id number] Notes Entered by: STEFANIA CALDERA 28 Jul 2017 0953 ------- ------- ------- ------- -- 6wks PP r/s STEFANIA CALDERA 07/28 Referred for Appointment [facility]) [facility]) OUTPATIENT [id number] 6wks PP LENI SLATER 08/06 Released w/o Limitations [facility]) Procedures Combined list of: 1) Procedures from Department of Veterans Affairs facilities going back up to thelast 18 months, not all VA non-surgical procedures are included; 2) All procedures from the Department of Defense facilities. Procedure Procedure Type Code Date Perfomer Comments Sourc e OTHER ARTIFICIAL RUPTURE OF MEMBRANES 06/16/19 06 DoD EKG (SCALP) 06/16/19 06 DoD OTHER MONITORING 06/16/19 06 DoD REPAIR OF OTHER CURRENT OBSTETRIC LACERATION 06/16/19 06 DoD VAGINAL DELIVERY ONLY (WITH OR WITHOUT EPISIOTOMY AND/OR FORCEPS); 06/14/19 06 [facility] ANTEPARTUM CARE ONLY; 7 OR MORE VISITS 06/03/19 [facility] ANTEPARTUM CARE ONLY; 7 OR MORE VISITS 05/28/19 [facility] ANTEPARTUM CARE ONLY; 7 OR MORE VISITS 05/19/19 [facility] CHILDBIRTH PREPARATION/LAMAZE CLASSES, NON-PHYSICIAN PROVIDER, PER SESSION 04/18/20 05 [facility] ULTRASOUND, UTERUS, REAL TIME WITH IMAGE DOCUMENTATION, AND MATERNAL EVALUATION, AFTER FIRST TRIMESTER (> OR = 14 WEEKS 0 DAYS), TRANSABDOMINAL APPROACH; SINGLE OR FIRST GESTATION 02/05/20 05 [facility] ULTRASOUND, UTERUS, REAL TIME WITH IMAGE DOCUMENTATION, AND MATERNAL EVALUATION, FIRST TRIMESTER (< 14 WEEKS 0 DAYS), TRANSABDOMINAL APPROACH; SINGLE OR FIRST GESTATION 12/06/19 05 [facility] ULTRASOUND, UTERUS, REAL TIME WITH IMAGE DOCUMENTATION, AND MATERNAL EVALUATION, FIRST TRIMESTER (< 14 WEEKS 0 DAYS), TRANSABDOMINAL APPROACH; SINGLE OR FIRST GESTATION 11/07/19 05 [facility] ULTRASOUND, UTERUS, REAL TIME WITH IMAGE DOCUMENTATION, AND MATERNAL EVALUATION, FIRST TRIMESTER (< 14 WEEKS 0 DAYS), TRANSABDOMINAL APPROACH; SINGLE OR FIRST GESTATION 10/23/19 05 [facility] CARE VISIT () 08/07/19 18 DoD REPAIR VULVA, EXTERNAL APPROACH 06/25/19 18 DoD DELIVERY OF PRODUCTS OF CONCEPTION, EXTERNAL APPROACH 06/25/19 18 DoD INTRODUCTION OF ANESTHETIC AGENT INTO SPINAL CANAL, PERCUTANEOUS APPROACH 06/25/19 18 DoD MONITORING OF PRODUCTS OF CONCEPTION, CARDIAC ELECTRICAL ACTIVITY, EXTERNAL APPROACH 06/25/19 18 DoD INSERTION OF INFUSION DEVICE INTO SPINAL CANAL, PERCUTANEOUS APPROACH 06/25/19 18 [facility] VAGINAL DELIVERY ONLY (WITH OR WITHOUT EPISIOTOMY AND/OR FORCEPS); 06/24/19 18 [facility] NEURAXIAL LABOR ANALGESIA/ANESTHESIA FOR PLANNED VAGINAL DELIVERY (THIS INCLUDES ANY REPEAT SUBARACHNOID NEEDLE PLACEMENT&DRUG INJECTION &/ ANY NECESSARY REPLACEMENT, AN EPIDURAL CATHETER DUR LABOR) 06/23/19 [facility] SUBSEQ CARE VISIT () [EXCLS:PATIENTS WHO ARE SEEN FOR A CONDITION UNREL TO / CARE (EG,AN UP RESPIR INFECT;PATIENTS SEEN FOR CONSULTATION ONLY,NOT FOR CONT CARE)] 06/11/19 18 [facility] SUBSEQ CARE VISIT () [EXCLS:PATIENTS WHO ARE SEEN FOR A CONDITION UNREL TO / CARE (EG,AN UP RESPIR INFECT;PATIENTS SEEN FOR CONSULTATION ONLY,NOT FOR CONT CARE)] 06/03/19 18 [facility] TELE ASSESS & MGT SRV PROV QUAL NONPHYS HLTH CARE PRO TO EST PAT,PARENT,GUARD NOT ORIG REL ASSESS & MGT SRV PROV W/IN PREV 7 DAYS NOR LEAD ASSESS & MGT SRV/PX W/IN NXT 24 HR/SOON APT;5-10 MIN MED DIS 06/01/19 18 [facility] SUBSEQ CARE VISIT () [EXCLS:PATIENTS WHO ARE SEEN FOR A CONDITION UNREL TO / CARE (EG,AN UP RESPIR INFECT;PATIENTS SEEN FOR CONSULTATION ONLY,NOT FOR CONT CARE)] 05/14/20 17 [facility] SUBSEQ CARE VISIT () [EXCLS:PATIENTS WHO ARE SEEN FOR A CONDITION UNREL TO / CARE (EG,AN UP RESPIR INFECT;PATIENTS SEEN FOR CONSULTATION ONLY,NOT FOR CONT CARE)] 04/13/20 17 [facility] SUBSEQ CARE VISIT () [EXCLS:PATIENTS WHO ARE SEEN FOR A CONDITION UNREL TO / CARE (EG,AN UP RESPIR INFECT;PATIENTS SEEN FOR CONSULTATION ONLY,NOT FOR CONT CARE)] 03/08/20 17 [facility] SUBSEQ CARE VISIT () [EXCLS:PATIENTS WHO ARE SEEN FOR A CONDITION UNREL TO / CARE (EG,AN UP RESPIR INFECT;PATIENTS SEEN FOR CONSULTATION ONLY,NOT FOR CONT CARE)] 01/26/20 17 [facility] INITIAL CARE VISIT (REPORT AT 1ST ENCOUN W HEALTH RELIEF CAPTAIN PROVIDING OBSTETRIC CARE. REPORT ALSO DATE OF VISIT &,IN A SEPARATE FIELD,THE DATE OF THE LAST MENSTRUAL PERIOD) 01/02/20 17 [facility] MEDICAL NUTRITION THERAPY; GROUP (2 OR MORE INDIVIDUAL(S)), EACH 30 MINUTES 12/29/19 17 [facility] PHYS/OTH QUALIFIED HEALTH RELIEF CAPTAIN QUALIFIED,EDUCATION, TRAIN,LICENSURE/REGU LATION (WHEN APPLICABLE) EDUC SER RENDERED TO PATS IN A GRP SETTING (EG,,OBESITY ,OR DIABETIC INSTRUCT) 12/26/19 17 [facility] OPHTHALMOLOGICAL SERVICES: MEDICAL EXAMINATION AND EVALUATION, WITH INITIATION OR CONTINUATION OF DIAGNOSTIC AND TREATMENT PROGRAM; COMPREHENSIVE, ESTABLISHED PATIENT, 1 OR MORE VISITS 04/15/20 16 [facility] SCREENING PAPANICOLAOU SMEAR; OBTAINING, PREPARING AND CONVEYANCE OF CERVICAL OR VAGINAL SMEAR TO LABORATORY 02/26/20 16 [facility] POSTOPERATIVE FOLLOW-UP VISIT, NORMALLY INCLUDED IN THE SURGICAL PACKAGE, INDICATE THAT EVALUATION & MANAGEMENT SERVICE WAS PERFORMED DURING A POSTOPERATIVE PERIOD REASON RELATED ORIGINAL PROCEDURE 12/19/19 16 [facility] POSTOPERATIVE FOLLOW-UP VISIT, NORMALLY INCLUDED IN THE SURGICAL PACKAGE, INDICATE THAT EVALUATION & MANAGEMENT SERVICE WAS PERFORMED DURING A POSTOPERATIVE PERIOD REASON RELATED ORIGINAL PROCEDURE 11/12/19 16 DoD POSTOPERATIVE FOLLOW-UP VISIT, NORMALLY INCLUDED IN THE SURGICAL PACKAGE, INDICATE THAT EVALUATION & MANAGEMENT SERVICE WAS PERFORMED DURING A POSTOPERATIVE PERIOD REASON RELATED ORIGINAL PROCEDURE 11/07/19 16 [facility] PHOTOREFRACTIVE KERATECTOMY (PRK) 11/06/19 16 [facility] OPHTHALMOLOGICAL SERVICES: MEDICAL EXAMINATION AND EVALUATION WITH INITIATION OF DIAGNOSTIC AND TREATMENT PROGRAM; INTERMEDIATE, NEW PATIENT 10/29/19 16 [facility] COMPUTERIZED CORNEAL TOPOGRAPHY, UNILATERAL OR BILATERAL, WITH INTERPRETATION AND REPORT 10/22/19 16 [facility] FITTING OF SPECTACLES, EXCEPT FOR APHAKIA; MONOFOCAL 09/09/19 16 [facility] FITTING OF SPECTACLES, EXCEPT FOR APHAKIA; MONOFOCAL 03/29/20 14 [facility] Obstetrical Services Care Visit Obstetrical Services Care Visit [id number] 08/07/19 18 LENI SLATER [facility] OB Services Antepartum Care Only Subsequent Single Visit OB Services Antepartum Care Only Subsequent Single Visit [id number] 06/27/19 18 TARIQ ORLANDO [facility] Non-Physician Phone Call To Patient/Provider Brief (5-10min) Non-Physician Phone Call To Patient/Provider Brief (5-10min) [id number] 06/02/19 18 DELIA MEDINA DoD Patient Counseling Medical Management Individual Patient Patient Counseling Medical Management Individual Patient [id number] 05/14/20 17 JOAO CANDELARIA OB Services Antepartum Care Only Subsequent Single Visit OB Services Antepartum Care Only Subsequent Single Visit [id number] 05/14/20 17 JOAO CANDELARIA DoD Patient Counseling Medical Management Individual Patient Patient Counseling Medical Management Individual Patient [id number] 04/13/20 17 LISBETH PANDYA OB Services Antepartum Care Only Subsequent Single Visit OB Services Antepartum Care Only Subsequent Single Visit [id number] 04/13/20 17 LISBETH PANDYA Patient Counseling Medical Management Individual Patient Patient Counseling Medical Management Individual Patient [id number] 03/13/20 17 LAZARA VALDEZ OB Services Antepartum Care Only Subsequent Single Visit OB Services Antepartum Care Only Subsequent Single Visit [id number] 03/13/20 17 LAZARA VALDEZ Ultrasound Obstetric Limited Evaluation Ultrasound Obstetric Limited Evaluation [id number] 01/02/20 17 LISBETH PANDYA OB Services Antepartum Care Only 1st Visit, With Flowsheet OB Services Antepartum Care Only 1st Visit, With Flowsheet [id number] 01/02/20 17 LISBETH PANDYA Medical Nutrition Therapy Group (2 or More Individual(s)) Medical Nutrition Therapy Group (2 or More Individual(s)) [id number] 01/01/20 17 SANIA MOORE Ophthalmological Prior Patient Start Comprehensive Care Ophthalmological Prior Patient Start Comprehensive Care [id number] 04/15/20 16 ELAINE LOVELACE Screening papanicolaou smear; obtaining, preparing and conveyance of cervical or vaginal smear to laboratory 02/26/20 16 LIZZETH WILKINSON Postoperative Visit, Without Charge Postoperative Visit, Without Charge [id number] 12/19/19 16 ELAINE LOVELACE Postoperative Visit, Without Charge Postoperative Visit, Without Charge [id number] 11/12/19 16 ELAINE LOVELACE Postoperative Visit, Without Charge Postoperative Visit, Without Charge [id number] 11/07/19 16 ELAINE LOVELACE Photorefractive keratectomy (PRK) 11/07/[address] Services Special Review / Reporting Of Patient Status Services Special Review / Reporting Of Patient Status [id number] 11/04/19 16 PAULY ESTRADA Ophthalmological New Patient Start Intermediate Level Care Ophthalmological New Patient Start Intermediate Level Care [id number] 10/29/19 16 ELAINE LOVELACE Determination Of Refractive State Determination Of Refractive State 63166 10/24/19 16 MARIAM LESTER manifest and cyclo DoD Computerized Corneal Topography Computerized Corneal Topography 97068 10/24/19 16 MARIAM LESTER Ophthalmological Prior Patient Start Comprehensive Care Ophthalmological Prior Patient Start Comprehensive Care 70192 10/24/19 16 MARIAM LESTER Prescription & Fitting Bilateral Corneal Lenses (Not Aphakia Prescription & Fitting Bilateral Corneal Lenses (Not Aphakia 70843 09/09/19 16 MARIAM LESTER Spectacles Services Fitting Monofocals (Not For Aphakia) [facility] Fitting Monofocals (Not For Aphakia) 19270 09/09/19 16 MARIAM LESTER Order FOC and S9 DoD Determination Of Refractive State Determination Of Refractive State 52352 09/09/19 16 MARIAM LESTER Ophthalmological Prior Patient Start Comprehensive Care Ophthalmological Prior Patient Start Comprehensive Care 06648 09/09/19 16 SUZAN LESTERTENZIN Nur Darlin Prescription & Fitting Bilateral Corneal Lenses (Not Aphakia Prescription & Fitting Bilateral Corneal Lenses (Not Aphakia 18300 03/29/20 14 SUZAN LESTERTENZIN Nur Darlin [facility] Fitting Monofocals (Not For Aphakia) [facility] Fitting Monofocals (Not For Aphakia) 51807 03/29/20 14 TAYLERMARIAM Order FOC and S9 DoD Determination Of Refractive State Determination Of Refractive State 96900 03/29/20 14 MARIAM LESTER Ophthalmological New Patient Start Comprehensive Care Ophthalmological New Patient Start Comprehensive Care 71675 03/29/20 14 MARIAM LESTER Obstetrical Services Antepartum Care Only 7 Or More Visits Obstetrical Services Antepartum Care Only 7 Or More Visits 02915 06/03/19 06 EVGENY HERRON Obstetrical Services Antepartum Care Only 7 Or More Visits Obstetrical Services Antepartum Care Only 7 Or More Visits 84023 05/28/19 06 EVGENY HERRON Ultrasound Obstetric Limited Evaluation Ultrasound Obstetric Limited Evaluation 95427 05/19/19 06 EVGENY HERRON Obstetrical Services Antepartum Care Only 7 Or More Visits Obstetrical Services Antepartum Care Only 7 Or More Visits 16696 05/19/19 06 EVGENY HERRON Childbirth preparation/Lamaze cla es, non-physician provider, per se ion 04/18/20 05 SUDHEER DUMONT [facility] Ultrasound Obstetric Complete Evaluation Ultrasound Obstetric Complete Evaluation 13255 02/05/20 05 DENIZ MUÑIZ [facility] Transabdominal Ultrasound Single Or First Gestation Transabdominal Ultrasound Single Or First Gestation 43233 12/06/19 05 DNEIZ MUÑIZ Transabdominal Ultrasound Single Or First Gestation Transabdominal Ultrasound Single Or First Gestation 64200 11/07/19 05 DENIZ MUÑIZ Transabdominal Ultrasound Single Or First Gestation Transabdominal Ultrasound Single Or First Gestation 71524 10/23/19 05 DENIZ MUÑIZ Social History Combined list of available smoking, tobacco, and other social history from [facility] [employer] and [facility] facilities. Social History Type Response Date Comment Sourc e This section is an empty social history section. DoD
== END 2025-01-08 13:02 | disposition home or self-care (01) ==
PROVIDERS: PCP Family Medicine; Visit Provider Family Medicine
DX: Z12.31 Encounter for screening mammogram for malignant neoplasm of breast (principal); R92.8 Other abnormal and inconclusive findings on diagnostic imaging of breast
CPT/HCPCS: 77063; 77067

== ENCOUNTER 2025-01-19 09:36 | Outpatient (CLI) | payer OTHER, SELFPAY ==
--- NOTE | ~2025-01-19 | MMUS_ITS ---
EXAMINATION: US breast RT limited, MM diagnostic isaac RT w bambi HISTORY: Inconclusive mammogram Right subareolar mass TECHNIQUE: [Additional images of the [[right breast]] were performed using full field digital mammography. 3-D tomosynthesis were also obtained and synthetic 2- D images were generated. CAD analysis was submitted and interpreted. High- resolution right breast ultrasound was performed of the right retroareolar region.] ] COMPARISON: Mammogram 01/08/2025 BREAST PARENCHYMAL COMPOSITION: The breasts are heterogeneously dense, which may obscure small masses FINDINGS: MAMMOGRAPHIC FINDINGS: Redemonstration of the right retroareolar mass. The finding corresponds with a1.6 cm heterogeneous mass by sonography. The finding is suspicious. ULTRASOUND: There is a 1.3 x 1.6 x 1.2 cm heterogeneous mass in the right retroareolar region. The finding corresponds with the mammographic finding. There is internal and peripheral color Doppler flow. The finding is wider than tall. Margins are partially circumscribed and partially indistinct. The finding is suspicious. IMPRESSION/RECOMMENDATION: 1. There is a 1.6 cm right retroareolar mass. The finding is suspicious. An ultrasound-guided right breast biopsy is recommended. BIRADS 4-Suspicious Protocol insures that results of the study are called and/or faxed to the referring clinician's office and documented in the patient's chart critical findings protocol. Reviewed, dictated and finalized at location Q. IMPRESSION/RECOMMENDATION: 1. There is a 1.6 cm right retroareolar mass. The finding is suspicious. An ult rasound-guided right breast biopsy is recommended. BIRADS 4-Suspicious Protocol insures that results of the study are called and/or faxed to the refer ring clinician's office and documented in the patient's chart critical findings protocol. IMPRESSION/RECOMMENDATION: 1. There is a 1.6 cm right retroareolar mass. The finding is suspicious. An ult rasound-guided right breast biopsy is recommended. BIRADS 4-Suspicious Protocol insures that results of the study are called and/or faxed to the refer ring clinician's office and documented in the patient's chart critical findings protocol.
== END 2025-01-19 09:37 | disposition home or self-care (01) ==
LOC: CHSIMG 09:37
PROVIDERS: PCP Family Medicine; Visit Provider Family Medicine
DX: N63.10 Unspecified lump in the right breast, unspecified quadrant (principal); R92.8 Other abnormal and inconclusive findings on diagnostic imaging of breast
CPT/HCPCS: 76642; 77061; 77065; G0279

== ENCOUNTER 2025-01-26 14:46 | Outpatient (CLI) | payer OTHER, SELFPAY ==
--- NOTE | ~2025-01-26 | XR_ITS ---
XR cervical spine 4-5V Indication: Radiculopathy, cervical region, tingling in hands x 6 months Comparison: None Findings: No fracture, no subluxation flexion-extension. Moderate loss of disc height C4-5 and C5-6. Soft tissues unremarkable Impression: No acute abnormality. Reviewed, dictated and finalized at location A. Impression: No acute abnormality.
== END 2025-01-26 14:47 | disposition home or self-care (01) ==
PROVIDERS: PCP Family Medicine; Visit Provider Family Medicine
DX: M54.12 Radiculopathy, cervical region (principal)
CPT/HCPCS: 72050

== ENCOUNTER 2025-02-05 09:40 | Outpatient (CLI) | payer OTHER, SELFPAY ==
--- NOTE | ~2025-02-05 | MMUS_ITS ---
PROCEDURE: US breast biopsy RT w image, MM post biopsy diagnostic RT CLINICAL HISTORY: 40-year-old female with suspicious right retroareolar mass presents for ultrasound-guided core needle biopsy procedure. COMPARISON: 01/19/2025 Following informed consent including risks, benefits, and possible complications, the patient was brought to the ultrasound suite. A time-out procedure was performed. A preliminary ultrasound of the right breast was performed, redemonstrating heterogeneous hypoechoic mass subareolar location. The patient was prepped and draped in the usual sterile fashion. 1% lidocaine was instilled into the subcutaneous tissues. 1% lidocaine without epinephrine was injected into the deep tissues just inferior to the lesion. Approximately 15cc lidocaine was administered. A small skin chang was made. Multiple core samples were obtained with a 13-gauge vacuum assisted biopsy needle. A post biopsy metal marker was placed at the biopsy site. Postprocedural mammogram of the right breast in craniocaudal and mediolateral projections reveal the post biopsy butterfly HydroMark marker in good position. The patient tolerated the procedure well and was without immediate postprocedural complications. IMPRESSION: Successful ultrasound guided biopsy of right subareolar mass. A post biopsy butterfly HydroMark marker was placed at the biopsy site, which is seen on postprocedural mammogram. The patient tolerated the procedure well without immediate postprocedure complications. The patient was given postprocedural instructions and sent home in stable condition. Biopsy results pending. Reviewed, dictated and finalized at location B. IMPRESSION: Successful ultrasound guided biopsy of right subareolar mass. A pos t biopsy butterfly HydroMark marker was placed at the biopsy site, which is see n on postprocedural mammogram. The patient tolerated the procedure well without immediate postprocedure compli cations. The patient was given postprocedural instructions and sent home in sta ble condition. Biopsy results pending.
--- NOTE | 2025-02-05 10:48 | S_PTH ---
PATIENT: Concha Brenner LOC: [facility] U#:[id number] AGE/SX: 40/F ROOM: RE02/05/[address]: Soraya Pacheco MD : [id number] BED: DIS: 02/05/2025 SPEC #: [id number] RECD: 02/05/25 12:12 STATUS: ADONIS REQ #: [id number] JOSE: 02/05/25 10:[address]: Soraya Pacheco DEPT: [facility] RECD BY: Aylin Guerra Tissues: A - Breast Biopsy Procedures: Hematoxylin and Eosin Stain Gross and Microscopic Level 4
== END 2025-02-05 09:41 | disposition home or self-care (01) ==
PROVIDERS: PCP Family Medicine; Visit Provider Family Medicine
DX: R92.8 Other abnormal and inconclusive findings on diagnostic imaging of breast (principal); D24.1 Benign neoplasm of right breast
CPT/HCPCS: 19083; 77065; 88305; A4648